=== PATIENT | female | born 1975 | race Asian ===

== ENCOUNTER 2018-03-13 14:31 | Emergency (ER) | payer OTHER ==
[2018-03-13 14:40] VITALS: TEMP 99.2; BMI 34.7
--- NOTE | 2018-03-13 14:48 | PDOC ---
Rapid Medical Evaluation Chief Complaint: Headache Time Seen by Provider: 03/13/18 14:39 Medical Evaluation: Allergies Allergy/AdvReac Type Severity Reaction Status Date / Time No Known Allergies Allergy Verified 03/26/15 09:10 Vital Signs Temp Pulse Resp BP Pulse Ox 99.2 F 96 H 18 139/94 98 03/13/18 14:35 03/13/18 14:35 03/13/18 14:35 03/13/18 14:35 03/13/18 14:35 03/13/18 14:40 42 year old female with headache with pain left eye/ left sided weakness x4 days ago, and shortness of breath. patient has a history of TIA 3 year ago / DM , and hypothyroidism PE: patient alert ox3. A: WEAKNESS p: LABS HEAD ct PATIENT TO THE er OF FURTHER MANAGEMENT OF CARE. Discharge Disposition - Diagnosis Weakness - Referrals - Patient Instructions - Post Discharge Activity
--- NOTE | 2018-03-13 15:18 | PDOC ---
Attending Attestation - HPI HPI: 03/13/18 16:00 42 y/o female with a past medical history of TIA with left sided residual weakness and obesity who presents to the emergency department for evaluation of shortness of breath and headache behind left eye for 3 days. <Janes Wilson - Last Filed: 03/13/18 16:00> - Resident Resident Name: Evangelist Estevez - ED Attending Attestation I have performed the following: I have examined & evaluated the patient, The case was reviewed & discussed with the resident, I agree w/resident's findings & plan, Exceptions are as noted - Physicial Exam PE: GENERAL: Awake, alert, and fully oriented, in no acute distress HEAD: No signs of trauma EYES: PERRLA, EOMI, sclera anicteric, conjunctiva clear ENT: Auricles normal inspection, hearing grossly normal, nares patent, oropharynx clear without exudates. Moist mucosa NECK: Normal ROM, supple, no lymphadenopathy, JVD, or masses LUNGS: Breath sounds equal, clear to auscultation bilaterally. No wheezes, and no crackles HEART: Regular rate and rhythm, normal S1 and S2, no murmurs, rubs or gallops ABDOMEN: Soft, nontender, normoactive bowel sounds. No guarding, no rebound. No masses EXTREMITIES: Normal range of motion, no edema. No clubbing or cyanosis. No cords, erythema, or tenderness NEUROLOGICAL: Cranial nerves II through XII grossly intact. Normal speech, normal gait. Motor and sensation intact. Coordination intact. SKIN: Warm, Dry, normal turgor, no rashes or lesions noted. - Medical Decision Making CTH wnl, no focal deficits on exam. CTA negative for PE. Labs wnl. Outpatient f/ u. <Angela Costa - Last Filed: 03/15/18 18:47> NIH Stroke Scale - Last Known Well Date/Time & Onset Date Last Known Well: 03/12/18 - Initial Evaluation Level of consciousness: Alert Ask patient the month and their age: Answers both correctly Ask patient to open & close eyes; make fist and let go: Obeys both correctly Best gaze (horizontal eye movement): Normal Visual field testing: No visual field loss Facial paresis (Show teeth/raise eyebrows/close eyes tight): Normal symmetrical movement Motor Function: Left Arm: Normal Motor Function: Right Arm: Normal (extends arm 90 (or 45) degrees for 10 seconds without drift Motor Function: Left Leg: Normal (extends leg 30 degrees for 5 seconds without drift) Motor Function: Right Leg: Normal (extends leg 30 degrees for 5 seconds without drift) Limb Ataxia: No ataxia Sensory(Use pinprick test arms,legs,trunk,face/side to side): Normal Best language (Describe picture, name items, read sentences): No Aphasia Dysarthria (read several words): Normal articulation Extinction and Inattention: No abnormality - Total Score NIH Stroke Scale Score: 0 <Angela Costa - Last Filed: 03/15/18 18:47> Attestations - Attestations Documentation prepared by Janes Wilson, acting as medical delivery driver for Angela Costa MD. <Janes Wilson - Last Filed: 03/13/18 16:00>
--- NOTE | 2018-03-13 15:52 | PDOC ---
History of Present Illness - General Chief Complaint: Headache Stated Complaint: HEADACHE, WEAKNESS Time Seen by Provider: 03/13/18 14:39 History Source: Patient - History of Present Illness Initial Comments: 03/13/18 15:51 42f with pmh of TIA in 2015 with residual mild left sided weakness) , Dm2, HTN, hypothyroidism and hyperlipidemia presenting with shortness of breath and headache for the past 3 days. She started feeling short of breath 3 days ago [place] Also complains of 2 episodes of loss of balance, fell twice over the past 2 days. Headache developed that day. located bitemporally but mainly behind left eye on the first day. Main complaint now is shortness of breath. 03/13/18 16:15 NIH Stroke Scale - Last Known Well Date/Time & Onset Date Last Known Well: 03/10/18 - Initial Evaluation Level of consciousness: Alert Ask patient the month and their age: Answers both correctly Ask patient to open & close eyes; make fist and let go: Obeys both correctly Best gaze (horizontal eye movement): Normal Visual field testing: No visual field loss Facial paresis (Show teeth/raise eyebrows/close eyes tight): Normal symmetrical movement Motor Function: Left Arm: Normal Motor Function: Right Arm: Normal (extends arm 90 (or 45) degrees for 10 seconds without drift Motor Function: Left Leg: Normal (extends leg 30 degrees for 5 seconds without drift) Motor Function: Right Leg: Normal (extends leg 30 degrees for 5 seconds without drift) Limb Ataxia: No ataxia Sensory(Use pinprick test arms,legs,trunk,face/side to side): Normal Best language (Describe picture, name items, read sentences): No Aphasia Dysarthria (read several words): Normal articulation Extinction and Inattention: No abnormality - Total Score NIH Stroke Scale Score: 0 Past History - Past Medical History Allergies/Adverse Reactions: Allergies Allergy/AdvReac Type Severity Reaction Status Date / Time No Known Allergies Allergy Verified 03/13/18 14:40 Home Medications: Ambulatory Orders Amlodipine Bes/Olmesartan Med [[place] 5-20 mg Tablet] 1 each PO DAILY 10/07/13 Levothyroxine [Synthroid -] 125 mcg PO DAILY 10/07/13 Sitagliptin Phos/Metformin HCl [Janumet 50-500 mg Tablet] 1 each PO BID Dapagliflozin Propanediol [Farxiga] 5 mg PO DAILY 03/26/15 Aspirin Coated [Ecotrin -] 81 mg PO DAILY #30 tablet.ec 03/27/15 Atorvastatin Ca [Lipitor] 40 mg PO HS tablet 03/27/15 COPD: No Diabetes: Yes HTN: Yes Hypercholesterolemia: Yes Seizures: Yes - Suicide/Smoking/Psychosocial Hx Smoking History: Former smoker Have you smoked in the past 12 months: Yes Number of Cigarettes Smoked Daily: 4 If you are a former smoker, when did you quit?: 02/06 Information on smoking cessation initiated: No 'Breaking Loose' booklet given: 08/05/14 Hx Alcohol Use: No Drug/Substance Use Hx: No Substance Use Type: None Hx Substance Use Treatment: No Review of Systems - Review of Systems Able to Perform ROS?: Yes Is the patient limited [place]ican proficient: No Constitutional: No: Symptoms Reported HEENTM: No: Symptoms Reported Respiratory: Yes: See HPI, SOB with Exertion. No: Cough Cardiac (ROS): No: Symptoms Reported ABD/GI: No: Symptoms Reported : No: Symptoms Reported Musculoskeletal: No: Symptoms Reported Integumentary: No: Symptoms Reported Neurological: Yes: See HPI All Other Systems: Reviewed and Negative *Physical Exam - Vital Signs Last Vital Signs Temp Pulse Resp BP Pulse Ox 99.2 F 96 H 18 139/94 98 03/13/18 14:35 03/13/18 14:35 03/13/18 14:35 03/13/18 14:35 03/13/18 14:35 - Physical Exam General Appearance: Yes: Nourished, Appropriately Dressed, Obese. No: Apparent Distress HEENT: positive: EOMI, [place], Normal ENT Inspection Respiratory/Chest: positive: Lungs Clear, Normal Breath Sounds. negative: Chest Tender, Respiratory Distress Cardiovascular: positive: Regular Rhythm, Regular Rate, S1, S2 Gastrointestinal/Abdominal: positive: Normal Bowel Sounds, Soft, Distended. negative: Tender Musculoskeletal: positive: Normal Inspection. negative: CVA Tenderness Extremity: positive: Normal Capillary Refill, Normal Inspection, Normal Range of Motion Integumentary: positive: Normal Color, Dry, Warm Neurologic: positive: Fully Oriented, Alert, Normal Mood/Affect, Normal Response , Motor Strength 5/5 ED Treatment Course - LABORATORY CBC & Chemistry Diagram: 03/13/18 15:45 03/13/18 15:45 Medical Decision Making - Medical Decision Making 03/13/18 16:14 PE vs CVA vs pneumonia vs URI Will evaluate for CVA/intracranial process with head CT DUe to history of TIA, we have to be concerned about repeat event. if D-dimer come back positive will consider chest CTA for PE 03/13/18 16:17 03/13/18 17:[address] : no acute processes. CTA pending 03/13/18 18:02 CTA negative for PE. Nodules noticed on left basilar lung. Will tell patient. Patient doesnt have a neurologist at this time. Will give referral and D/c. *DC/Admit/Observation/Transfer Diagnosis at time of Disposition: Headache, Shortness of breath - Discharge Dispostion Disposition: HOME Condition at time of disposition: Improved Decision to Admit order: No - Referrals Referrals: Yelena Garber MD [Primary Care Provider] - - Patient Instructions Printed Discharge Instructions: DI for Shortness of Breath Additional Instructions: Follow up with Dr. Garber on Tuesday. Follow up with Dr. Bee, Neurologist, call upon discharge to make appointment. Come back to the Emergency Department for any new, worsening or concerning symptom. - Post Discharge Activity Forms/Work/School Notes: Back to Work
[2018-03-13 15:55] LABS: BASO % 0.5 % (0-2.0); EOS % 3.3 % (0-4.5); HEMATOCRIT 41.8 % (32.4-45.2); HEMOGLOBIN 13.8 GM/dL (10.7-15.3); LYMPH % 24.1 % (8-40); MCH 26.3 pg (25.7-33.7); MCHC 33.1 g/dl (32.0-36.0); MEAN CELL VOLUME 79.4 fl (80-96); MEAN PLT VOLUME 7.7 fl (7.5-11.1); MONO % 7.2 % (3.8-10.2); NEUT % 64.9 % (42.8-82.8); PLATELET COUNT 422 K/MM3 (134-434); RBC 5.26 M/mm3 (3.60-5.2); RDW 15.6 % (11.6-15.6); WHITE BLOOD COUNT 8.7 K/mm3 (4.0-10.0)
[2018-03-13 16:02] LABS: INR 0.96 (0.83-1.09); PROTHROMBIN TIME (PATIENT) 11.3 SEC (9.7-13.0)
[2018-03-13 16:15] LABS: ALBUMIN 4.4 g/dl (3.4-5.0); ALK PHOS 113 U/L (45-117); ANION GAP 11 MMOL/L (8-16); BILIRUBIN,TOTAL 0.2 mg/dL (0.2-1); BLOOD UREA NITROGEN 14 mg/dL (7-18); CALCIUM 9.5 mg/dL (8.5-10.1); CHLORIDE 104 mmol/L (98-107); CHOLESTEROL 199 mg/dL (50-200); CO2 23 mmol/L (21-32); GLUCOSE,RANDOM 162 mg/dL (74-106); HDL CHOLESTEROL 46 mg/dL (40-60); POTASSIUM 4.1 mmol/L (3.5-5.1); SGOT/AST 16 U/L (15-37); SGPT/ALT 31 U/L (13-61); SODIUM 138 mmol/L (136-145); TOT PROT 8.5 g/dl (6.4-8.2); TRIGLYCERIDES 369 mg/dL (0-150)
[2018-03-13 18:44] VITALS: BP 129/82; PULSE 81
== END 2018-03-13 18:44 | disposition home or self-care (01) ==
LOC: JER 14:31
DX: R51 Headache (principal); R06.02 Shortness of breath; I10 Essential (primary) hypertension; E11.9 Type 2 diabetes mellitus without complications; Z79.84 Long term (current) use of oral hypoglycemic drugs; E03.9 Hypothyroidism, unspecified; E78.00 Pure hypercholesterolemia, unspecified; Z86.73 Personal history of transient ischemic attack (TIA), and cerebral infarction without residual deficits; Z86.69 Personal history of other diseases of the nervous system and sense organs; Z87.891 Personal history of nicotine dependence
CPT/HCPCS: 36415; 70450-TC; 71275-TC; 80053; 82465; 82550; 83718; 83721; 84478; 84484; 85025; 85379; 85610; 86850; 86900; 86901; 99283-25

== ENCOUNTER 2018-06-23 10:15 | Emergency (ER) | payer OTHER ==
[2018-06-23 10:21] VITALS: BP 146/85; PULSE 82; TEMP 98.2; BMI 33.5
--- NOTE | 2018-06-23 10:23 | PDOC ---
History of Present Illness - General Chief Complaint: Pain Stated Complaint: LEFT FLANK PAIN Time Seen by Provider: 06/23/18 10:22 - History of Present Illness Initial Comments: 06/23/18 11:24 Chief complaint: Left flank pain History of present illness: Patient complains of intermittent severe colicky left flank pain for several days. This is accompanied by nausea and retching. She is known to have stones in her left kidney. Review of systems: No fever/chills, headache, URI symptoms, sore throat, cough, chest pain, shortness of breath, abdominal pain, diarrhea, vaginal bleeding or discharge, dysuria, frequency, urgency, hesitancy, or hematuria. She states that she is urinating normally. Past medical history: Renal calcification as noted. [id number]-ioduxwuyo diabetes. High blood pressure. Elevated cholesterol. Hypothyroidism. Morbid obesity. 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 Fully active and without disability Family history: Reviewed and noncontributory including early coronary artery disease, metabolic diseases including diabetes, GI disease, kidney disease, and cancer Physical exam: Alert and oriented, moderate distress secondary to flank pain. Otherwise cooperative Afebrile, vital signs normal No pallor or icterus. PERRLA, ENT clear Neck supple without bruit mass or nodes Chest clear CV regular without murmur rub or gallop Abdomen nondistended. Bowel sounds normal. Soft without mass tenderness organomegaly. No appreciable CVAT Extremities no CCE Skin clear, no rash, adequate turgor and wet mucous membranes Neurological intact Impression: Renal calcifications, probably acute renal colic. No abdominal tenderness to suggest other intra-abdominal process. No pelvic tenderness. Plan: Intravenous fluids, analgesics, antiemetics, and observation. Consider further imaging. 06/23/18 11:33 Past History - Past Medical History Allergies/Adverse Reactions: Allergies Allergy/AdvReac Type Severity Reaction Status Date / Time No Known Allergies Allergy Verified 06/23/18 10:18 Home Medications: Ambulatory Orders Levothyroxine [Synthroid -] 125 mcg PO DAILY 10/07/13 Sitagliptin Phos/Metformin HCl [Janumet 50-500 mg Tablet] 1 each PO BID Aspirin Coated [Ecotrin -] 81 mg PO DAILY #30 tablet.ec 03/27/15 Amlodipine Besylate 5 mg PO DAILY 03/13/18 Rosuvastatin Calcium [Crestor] 10 mg PO DAILY 03/13/18 Diclofenac Sodium 50 mg PO TID PRN #15 tablet. 06/23/18 Oxycodone HCl/Acetaminophen [Percocet 10-325 mg Tablet] 1 each PO QID PRN #10 tablet MDD 4 06/23/18 COPD: No Diabetes: Yes HTN: Yes Hypercholesterolemia: Yes Seizures: Yes - Suicide/Smoking/Psychosocial Hx Smoking History: Unknown if ever smoked Have you smoked in the past 12 months: No Number of Cigarettes Smoked Daily: 4 If you are a former smoker, when did you quit?: 02/06 Information on smoking cessation initiated: No 'Breaking Loose' booklet given: 08/05/14 Hx Alcohol Use: No Drug/Substance Use Hx: No Substance Use Type: None Hx Substance Use Treatment: No *Physical Exam - Vital Signs Last Vital Signs Temp Pulse Resp BP Pulse Ox 98.2 F 82 18 146/85 100 06/23/18 10:15 06/23/18 10:15 06/23/18 10:15 06/23/18 10:15 06/23/18 10:15 Moderate Sedation - Procedure Monitoring Vital Signs: Procedure Monitoring Vital Signs Temperature 98.2 F 06/23/18 10:15 Pulse Rate 82 06/23/18 10:15 Respiratory Rate 18 06/23/18 10:15 Blood Pressure 146/85 06/23/18 10:15 O2 Sat by Pulse Oximetry (%) 100 06/23/18 10:15 Medical Decision Making - Medical Decision Making 06/23/18 12:21 Urinalysis reveals 2+ blood no nitrites or leukocyte esterase. Lab work from [place] that was done yesterday was reviewed. CBC and chemistries were normal except for a glucose of 168 Pain and nausea are resolved after the administration of Toradol and Zofran. 06/23/18 14:51 CT urogram shows a stone in the lower pole of the kidney but no hydronephrosis, no hydroureter, and no ureteral stone according to the radiologist. However, there is a calcification distal to the kidney but probably is a vessel. The possibility exists that this is mechanical back pain and that the stone in the kidney is not the source of the discomfort. Since there is no sign of obstruction, pain medication prescribed and follow-up with urologist recommended. To return to the ER if there is fever, increased pain, or other complication. *DC/Admit/Observation/Transfer Diagnosis at time of Disposition: Kidney stone - Discharge Dispostion Disposition: HOME Condition at time of disposition: Improved Decision to Admit order: No - Prescriptions Prescriptions: Diclofenac Sodium 50 mg PO TID PRN #15 tablet. PRN Reason: Pain Oxycodone HCl/Acetaminophen [Percocet 10-325 mg Tablet] 1 each PO QID PRN #10 tablet MDD 4 PRN Reason: Severe Pain - Referrals Referrals: Miguel Mccoy MD [Staff Physician] - 3 days - Patient Instructions Printed Discharge Instructions: DI for Kidney Stones, DI for Back Strain or Sprain - Post Discharge Activity Forms/Work/School Notes: Back to Work
[2018-06-23 10:38] LABS: HCG,QUALITATIVE URINE Negative
[2018-06-23 10:45] LABS: URINE APPEARANCE Clear; URINE BILIRUBIN Negative (NEGATIVE); URINE COLOR Yellow; URINE GLUCOSE (UA) Negative (NEGATIVE); URINE KETONE Trace (NEGATIVE); URINE LEUK ESTERASE Negative (NEGATIVE); URINE NITRITE Negative (NEGATIVE); URINE PROTEIN 2+ (NEGATIVE); URINE UROBILINOGEN 0.2 (0.2-1.0)
[2018-06-23] MEDS ORDERED: SODIUM CHLORIDE 1,000 ML IV STA ×2 (10:47→13:39)
[2018-06-23] MEDS ORDERED: KETOROLAC TROMETHAMINE 30 MG/1 ML VIAL IVPUSH ONE (10:48)
[2018-06-23] MEDS ORDERED: ONDANSETRON 4 MG/2 ML VIAL IVPB ONE (10:48)
[2018-06-23] MEDS ORDERED: KETOROLAC TROMETHAMINE 30 MG/1 ML VIAL ONE (10:53)
[2018-06-23] MEDS ORDERED: ONDANSETRON 4 MG/2 ML VIAL ONE (10:53)
[2018-06-23] MEDS ORDERED: TAMSULOSIN HCL 0.4 MG CAP PO ONE (11:07)
[2018-06-23] MEDS ORDERED: TAMSULOSIN HCL 0.4 MG CAP ONE (11:15)
[2018-06-23 12:27] LABS: EPI CELLS 1+ /HPF
[2018-06-23] MEDS ORDERED: ACETAMINOPHEN 1000 MG/100 ML VIAL (NON FORMULARY) IVPB ONE (13:40)
[2018-06-23] MEDS ORDERED: ACETAMINOPHEN INJECTION 100 ML IVPB ONE (13:45)
== END 2018-06-23 15:21 | disposition home or self-care (01) ==
LOC: FER 10:15
PROC: 3E033NZ Introduction of Analgesics, Hypnotics, Sedatives into Peripheral Vein, Percutaneous Approach (ICD-10-PCS; principal; 2018-06-23)
PROC: 3E0333Z Introduction of Anti-inflammatory into Peripheral Vein, Percutaneous Approach (ICD-10-PCS; 2018-06-23)
PROC: 3E033GC Introduction of Other Therapeutic Substance into Peripheral Vein, Percutaneous Approach (ICD-10-PCS; 2018-06-23)
PROC: 3E0337Z Introduction of Electrolytic and Water Balance Substance into Peripheral Vein, Percutaneous Approach (ICD-10-PCS; 2018-06-23)
DX: N20.0 Calculus of kidney (principal); I10 Essential (primary) hypertension; E11.9 Type 2 diabetes mellitus without complications; E78.00 Pure hypercholesterolemia, unspecified
CPT/HCPCS: 74176-TC; 76775-TC; 81003; 81015; 84703; 99284-25; J0131; J7030

== ENCOUNTER 2018-07-03 11:00 | Day surgery (SDC) | payer OTHER | END 2018-07-03 14:25 | disposition home or self-care (01) | LOC: JASU-SURG 11:00 ==

== ENCOUNTER 2019-01-11 20:16 | Emergency (ER) | payer OTHER ==
[2019-01-11 20:32] VITALS: BMI 29.2
--- NOTE | 2019-01-11 20:34 | PDOC ---
Rapid Medical Evaluation Time Seen by Provider: 01/11/19 20:29 Medical Evaluation: Allergies Allergy/AdvReac Type Severity Reaction Status Date / Time No Known Allergies Allergy Verified 07/03/18 11:37 01/11/19 20:30 Pt with PMH of TIA presents to the ER with L scalp pain since Tuesday. She also reports having associated neck pain. She states that she feels like someone is pulling her hair Exam:TTP with moving her hair on the L side. No rash. No gross neuro deficits Orders: labs Pt to proceed to the ER for further evaluation Discharge Disposition - Diagnosis Scalp pain - Referrals - Patient Instructions - Post Discharge Activity
[2019-01-11 21:15] VITALS: TEMP 98.4
[2019-01-11 21:29] LABS: BASO % 0.4 % (0-2.0); HEMATOCRIT 38.6 % (32.4-45.2); HEMOGLOBIN 12.5 GM/dL (10.7-15.3); LYMPH % 26.8 % (8-40); MCH 26.6 pg (25.7-33.7); MCHC 32.5 g/dl (32.0-36.0); MEAN PLT VOLUME 7.6 fl (7.5-11.1); MONO % 10.9 % (3.8-10.2); NEUT % 54.9 % (42.8-82.8); PLATELET COUNT 372 K/MM3 (134-434); RDW 15.4 % (11.6-15.6); WHITE BLOOD COUNT 6.9 K/mm3 (4.0-10.0)
[2019-01-11 21:42] LABS: EPI CELLS 1.6 /HPF (0-5/HPF); HYALINE CASTS 2 /lpf (0-8); PH,URINE 6.5 (5.0-8.0); URINE APPEARANCE CLEAR; URINE BACTERIA 1.5 /hpf (NEGATIVE); URINE BILIRUBIN NEGATIVE (NEGATIVE); URINE COLOR YELLOW; URINE GLUCOSE (UA) NEGATIVE (NEGATIVE); URINE KETONE NEGATIVE (NEGATIVE); URINE LEUK ESTERASE NEGATIVE (NEGATIVE); URINE NITRITE NEGATIVE (NEGATIVE); URINE PROTEIN 1+ (NEGATIVE); URINE RBC 1 /hpf (0-4); URINE UROBILINOGEN 0.2 mg/dL (0.2-1.0); URINE WBC 2 /hpf (0-5)
[2019-01-11 21:49] LABS: INR 0.91 (0.83-1.09); PROTHROMBIN TIME (PATIENT) 10.7 SEC (9.7-13.0)
[2019-01-11 21:51] LABS: ALBUMIN 4.5 g/dl (3.4-5.0); BILIRUBIN,TOTAL 0.3 mg/dL (0.2-1); BLOOD UREA NITROGEN 14.5 mg/dL (7-18); CALCIUM 9.6 mg/dL (8.5-10.1); POTASSIUM 3.6 mmol/L (3.5-5.1); TOT PROT 8.2 g/dl (6.4-8.2)
[2019-01-11] MEDS ORDERED: ACETAMINOPHEN 1000 MG/100 ML VIAL (NON FORMULARY) IVPB ONE (21:52)
[2019-01-11] MEDS ORDERED: METOCLOPRAMIDE HCL INJECTION 10 MG/2 ML VIAL IVPUSH ONE (21:52)
[2019-01-11] MEDS ORDERED: SODIUM CHLORIDE 0.9% 1000 ML INFUS.BAG IV ONE (21:52)
[2019-01-11] MEDS ORDERED: ACETAMINOPHEN INJECTION 100 ML IVPB ONE (22:04)
[2019-01-11] MEDS ORDERED: METOCLOPRAMIDE HCL INJECTION 10 MG/2 ML VIAL ONE (22:04)
--- NOTE | 2019-01-11 22:42 | PDOC ---
History of Present Illness - General Chief Complaint: Headache Stated Complaint: TIA Time Seen by Provider: 01/11/19 20:29 History Source: Patient Exam Limitations: No Limitations - History of Present Illness Initial Comments: 01/11/19 22:03 HPI: 43yo F with PMH HTN, TIA in 2014, hypothyroidism, DM2, anemia, menopause ( unconfirmed, reports LMP Apr 2018), presenting with muffled L ear and L scalp sensation for 4 days. Reports chronic nausea, hx of palpitations, prior thrombocytopenia, some recent subjective fevers / chills. Reports bilateral leg weakness at present. Weight loss of 30lb previsouly unexplained, found to be related to thyroxine dose. Symptoms gradually started on tuesday, subsequently worsened over the day today. Unable to "pop" her ear. Worried about astrocytoma. Sent in from urgent care for CT. Patient denies any trauma to her ear / drainage / pain. All: KNDa Meds: -Synthroid 100 -Amlodipine 5/20 -Crestor 40 -Pepcid -Janumet 50/500 BID -Vitamin D PMH: as above PSH: denies Past History - Travel Traveled outside of the country in the last 30 days: No Close contact w/someone who was outside of country & ill: No - Past Medical History Allergies/Adverse Reactions: Allergies Allergy/AdvReac Type Severity Reaction Status Date / Time No Known Allergies Allergy Verified 01/11/19 20:32 Home Medications: Ambulatory Orders Levothyroxine [Synthroid -] 100 mcg PO DAILY 10/07/13 Amlodipine Besylate 5 mg PO DAILY 01/11/19 Benazepril HCl 20 mg PO DAILY 01/11/19 Cholecalciferol (Vitamin D3) [Vitamin D3 -] 50,000 unit PO DAILY 01/11/19 Famotidine [Pepcid] 20 mg PO DAILY 01/11/19 Rosuvastatin Calcium [Crestor] 40 mg PO DAILY 01/11/19 Sitagliptin Phos/Metformin HCl [Janumet 50-500 mg Tablet] 1 each PO BID Anemia: Yes Asthma: No Cancer: No Cardiac Disorders: No CVA: (TIA 2014) COPD: No CHF: No Dementia: No Diabetes: Yes GI Disorders: No Disorders: No HTN: Yes Hypercholesterolemia: Yes Kidney Stones: Yes Liver Disease: No Seizures: Yes (1990'S) Thyroid Disease: No - Suicide/Smoking/Psychosocial Hx Smoking History: Former smoker Have you smoked in the past 12 months: Yes Number of Cigarettes Smoked Daily: 4 If you are a former smoker, when did you quit?: 04/11 Information on smoking cessation initiated: No 'Breaking Loose' booklet given: 08/05/14 Hx Alcohol Use: No Drug/Substance Use Hx: No Substance Use Type: None Hx Substance Use Treatment: No Review of Systems - Review of Systems Able to Perform ROS?: Yes Is the patient limited [place] proficient: Yes Constitutional: Yes: Chills, Fever (subjective), Weakness (bilateral legs), Unexplained wgt Loss (now explained, thyroid hormone OD). No: Diaphoresis HEENTM: No: Recent change in vision, Nose Congestion, Throat Pain, Throat Swelling Respiratory: No: Cough, Orthopnea, Shortness of Breath, Wheezing Cardiac (ROS): No: Chest Pain, Edema, Irregular Heart Rate, Palpitations, Syncope, Chest Tightness ABD/GI: No: Blood Streaked Bowels, Constipated, Diarrhea, Nausea, Rectal Bleeding, Vomiting, Tarry Stools : No: Burning, Dysuria, Discharge, Frequency Musculoskeletal: Yes: Muscle Weakness. No: Back Pain, Joint Pain, Muscle Pain Integumentary: No: Bruising, Dryness, Erythema, Pruritus, Rash Neurological: No: Headache, Numbness, Tingling Psychiatric: No: Anxiety, Depression, Stressors, Mood Swings, Change in Appetite Endocrine: No: Excessive Sweating, Intolerance to Cold, Intolerance to Heat, Change in Weight (none recently) Hematologic/Lymphatic: No: Anemia, Blood Clots, Easy Bleeding, Easy Bruising All Other Systems: Reviewed and Negative *Physical Exam - Vital Signs Last Vital Signs Temp Pulse Resp BP Pulse Ox 98.4 F 95 H 18 149/106 H 96 01/11/19 21:12 01/11/19 21:12 01/11/19 20:30 01/11/19 21:12 01/11/19 21:12 - Physical Exam Comments: 01/11/19 22:44 Vitals reviewed, notable for HTN, otherwise AFVSS Gen: WDWN woman, appears stated age, NAD, sitting in bed, nervous HEENT: PERRLA, MMM, trachea midline, throat noninected, NCAT, no scalp erythema/ rash/lesions, scalp nontender, TMs intact without infectious signs bilaterally, no impacted cerumen, sinuses nontender, normal morphologies, EOMI CV: RRR, nl s1/s2, no murmurs appreciated Pulm: CTABL, normal WOB, no wheezes / rales / rhonchi Abd: soft, nontender, nondistended Ext: WWP, no clubbing / cyanosis / edema Pulses: 2+ radial and PT Neuro: CN2-12 intact, 5+ strength throughout, normal sensation throughout, MAEE , alert and oriented ED Treatment Course - LABORATORY CBC & Chemistry Diagram: 01/11/19 21:10 01/11/19 21:10 - ADDITIONAL ORDERS Additional order review: Laboratory Results 01/11/19 01/11/19 01/11/19 21:10 21:10 21:10 PT with INR 10.70 INR 0.91 Sodium 140 Potassium 3.6 Chloride 105 Carbon Dioxide 28 Anion Gap 8 BUN 14.5 Creatinine 1.0 Est GFR (CKD-EPI)AfAm 78.79 Est GFR (CKD-EPI)NonAf 67.98 Random Glucose 152 H Calcium 9.6 Total Bilirubin 0.3 AST 11 L ALT 16 Alkaline Phosphatase 95 Total Protein 8.2 Albumin 4.5 Urine Color Yellow Urine Appearance Clear Urine pH 6.5 Ur Specific [place] 1.012 Urine Protein 1+ H Urine Glucose (UA) Negative Urine Ketones Negative Urine Blood Trace Urine Nitrite Negative Urine Bilirubin Negative Urine Urobilinogen 0.2 Ur Leukocyte Esterase Negative Urine WBC (Auto) 2 Urine RBC (Auto) 1 Urine Casts (Auto) 2 U Epithel Cells (Auto) 1.6 Urine Bacteria (Auto) 1.5 01/11/19 21:10 RBC 4.70 MCV 82.0 MCHC 32.5 RDW 15.4 MPV 7.6 Neutrophils % 54.9 Lymphocytes % 26.8 Monocytes % 10.9 H Eosinophils % 7.0 H D Basophils % 0.4 - RADIOLOGY Radiology Studies Ordered: Category Date Time Status HEAD CT WITHOUT CONTRAST [CT] Stat CT Scan 01/11/19 22:00 Ordered Medical Decision Making - Medical Decision Making 01/11/19 22:30 43yo F with PMH HTN, TIA in 2014, hypothyroidism, DM2, anemia, menopause ( unconfirmed, reports LMP Apr 2018), presenting with muffled L ear and L scalp sensation for 4 days. Sent from urgent care for CT given FHx of astrocytoma, personal history of TIA, and atypical symptom constellation. Exam notable for normal lining machine tender aside from subjective sensory changes (L<R), normal neuro exam otherwise. History notable for abrupt onset of subacute symptoms. Does not appear infectious (AF, noninfectious exam). Could be an atypical migraine vs less likely TIA (must consider given prior CVA in 2015, no anticoagulation, Hx of palpitations). Unlikely ENT pathology given exam although fullness / muffled Hx would be c/w Eustachian tube blockage. Will Tx for atypical migraine while obtaining labs / imaging to assess sx resolution. -CBC, CMP, PT/INR, UA/UCx, Serum Preg -Reglan, Tylenol, IVF -NCHCT 01/11/19 23:12 -No leukocytosis or anemia, plts within normal range -Pt/INR normal -Glucose mildly elevated to 152 -LFTs wnl -UA without signs of UTI - test negative -NCHCT pending 01/12/19 00:39 -Head CT without acute findings -Patient to f/u with ENT -Return precautions discussed, patient verbalized understanding Dispo: Home *DC/Admit/Observation/Transfer Diagnosis at time of Disposition: Scalp pain - Discharge Dispostion Disposition: HOME Condition at time of disposition: Improved Decision to Admit order: No - Referrals Referrals: Yelena Garber MD [Primary Care Provider] - Murphy Ortega MD [Staff Physician] - - Patient Instructions Printed Discharge Instructions: DI for Migraine Additional Instructions: You were seen and evaluated in the ED for headache and ear fullness. Your work up ruled out emergent causes of your symptoms. Please follow up with your primary care doctor in the next 1-2 days for further evaluation. Also please arrange an appointment with the provided ENT doctor for further evaluation of your ear complaints. Do not hesitate to return to the emergency department if you experience any new or concerning symptoms. - Post Discharge Activity
--- NOTE | 2019-01-11 23:29 | PDOC ---
Documentation entered by Penny David SCRIBE, acting as scribe for Erinn Vidal DO. Erinn Vidal DO: This documentation has been prepared by the Frankie murray Brenda, SCRIBE, under my direction and personally reviewed by me in its entirety. I confirm that the documentation accurately reflects all work, treatment, procedures, and medical decision making performed by me. Attending Attestation - Resident Resident Name: PuneetJohnson - ED Attending Attestation I have performed the following: I have examined & evaluated the patient, The case was reviewed & discussed with the resident, I agree w/resident's findings & plan, Exceptions are as noted - HPI HPI: 01/11/19 22:33 The patient is a 43 year old female, with a significant PMH of TIA in 2014 (Left -sided weakness) , NIDDM, HTN, hypothyroidism and hyperlipidemia who presents to the emergency department with left and mid scalp pain since Tuesday, stating that the ain is due to her hair. Patient also reports muffled hearing in her left ear. She also reports blurry vision, but notes recently wearing glasses for it. The patient denies any cold symptoms. Denies chest pain, shortness of breath, and dizziness. Denies fever, chills, nausea, vomiting, diarrhea and constipation. Denies dysuria, frequency, urgency and hematuria. Allergies: NKA Past surgical history: Left ESWL Social history: Former smoker. PCP: Dr. Garber - Physicial Exam PE: 01/11/19 22:33 GENERAL: Awake, alert, and fully oriented, in no acute distress HEAD: No signs of trauma EYES: PERRLA, EOMI, sclera anicteric, conjunctiva clear ENT: Auricles normal inspection, hearing grossly normal, nares patent, oropharynx clear without exudates. Moist mucosa NECK: Normal ROM, supple, no lymphadenopathy, JVD, or masses LUNGS: Breath sounds equal, clear to auscultation bilaterally. No wheezes, and no crackles HEART: Regular rate and rhythm, normal S1 and S2, no murmurs, rubs or gallops ABDOMEN: Soft, nontender, normoactive bowel sounds. No guarding, no rebound. No masses EXTREMITIES: Normal range of motion, no edema. No clubbing or cyanosis. No cords, erythema, or tenderness NEUROLOGICAL: Cranial nerves II through XII grossly intact. Normal speech, normal gait SKIN: Warm, Dry, normal turgor, no rashes or lesions noted. - Medical Decision Making 01/11/19 23:26 I, Dr. Erinn Vidal, DO, attest that this document has been prepared under my direction and personally reviewed by me in its entirety. I further attest, that it accurately reflects all work, treatment, procedures and medical decision -making performed by me. a/p: 43yo female with L hair pain and ear fullness -pt states ear feels clogged and decreased hearing since tuesday -no rhinorrhea, no mastoid pain, no sinus congestion, no sneezing, no nasal congestion, no f/c -denies juarez -no tinnitus -no vertigo -no parotidis -will send labs, head ct - family with hx of astrocytoma causing acute hearing loss - pt very concerned -will medicate with reglan and tylenol -will monitor and reassess 01/11/19 23:28 neuro intact labs reviewed pt to head ct 01/12/19 00:53 no acute findings on head ct pt stable for dc to home to follow up with ENT for further eval of ear fullness
[2019-01-12 02:01] VITALS: BP 145/97; PULSE 86
== END 2019-01-12 01:30 | disposition home or self-care (01) ==
LOC: JER 20:16
PROC: 3E033NZ Introduction of Analgesics, Hypnotics, Sedatives into Peripheral Vein, Percutaneous Approach (ICD-10-PCS; principal; 2019-01-11)
PROC: 3E0337Z Introduction of Electrolytic and Water Balance Substance into Peripheral Vein, Percutaneous Approach (ICD-10-PCS; 2019-01-11)
PROC: 3E033GC Introduction of Other Therapeutic Substance into Peripheral Vein, Percutaneous Approach (ICD-10-PCS; 2019-01-11)
DX: G43.909 Migraine, unspecified, not intractable, without status migrainosus (principal); L98.9 Disorder of the skin and subcutaneous tissue, unspecified; I10 Essential (primary) hypertension; E11.9 Type 2 diabetes mellitus without complications; E03.9 Hypothyroidism, unspecified; E78.5 Hyperlipidemia, unspecified; Z86.73 Personal history of transient ischemic attack (TIA), and cerebral infarction without residual deficits; Z86.69 Personal history of other diseases of the nervous system and sense organs; Z87.442 Personal history of urinary calculi; Z87.891 Personal history of nicotine dependence
CPT/HCPCS: 36415; 70450-TC; 80053; 81003; 84703; 85025; 85610; 87086; 99283-25; J0131; J7030

== ENCOUNTER 2019-05-11 12:48 | Day surgery (SDC) | payer OTHER ==
[2019-05-10 12:56] VITALS: BMI 30.2
[2019-05-11] MEDS ORDERED: LIDOCAINE HCL 2% (20ML MULTI-DOSE VIAL) ONE (15:09)
[2019-05-11] MEDS ORDERED: LIDOCAINE HCL 2% (50ML VIAL) INF ONE (15:52)
[2019-05-11] MEDS ORDERED: ACETAMINOPHEN 325 MG TABLET (FP) ONE (16:24)
--- NOTE | 2019-05-11 16:49 | OP ---
DATE OF OPERATION: DATE OF DICTATION: 05/11/2019 PREOPERATIVE DIAGNOSIS: Vulvar lesion. POSTOPERATIVE DIAGNOSIS: Vulvar lesion. SURGEON: Perfecto Butler MD ANESTHESIA: Local 2% lidocaine. PROCEDURE: Removal of a lesion very close to clitoris about 1 cm. DESCRIPTION OF PROCEDURE: During the procedure, 2 mL of lidocaine 2% injected and the lesion removed, and 2 sutures with 3-0 Vicryl was done. Estimated blood loss was 2 mL. Patient tolerated the procedure, was sent back to her room. Rebekah [id number]
[2019-05-11 17:23] VITALS: BP 120/60; PULSE 70; TEMP 97.8
--- NOTE | 2019-05-15 14:56 | PATH ---
Surgical Pathology Report Patient Name: BHASKAR RODRIGUEZ [facility]. Rec. #: [id number] /Age/Gender: 1975 (Age: 43) / F Account: [id number] Location: [facility] SURGICAL Taken: 05/11/2019 Received: 05/14/2019 Reported: 05/15/2019 Physicians: Perfecto Butler M.D. Specimen(s) Received VULVA LESION Clinical History Vulvar neoplasm Final Diagnosis VULVAR LESION, EXCISION: GENITAL SKIN WITH CHANGES CONSISTENT WITH RUPTURED AND INFLAMED EPIDERMAL INCLUSION CYST. NO DYSPLASIA IDENTIFIED. Comment: Deeper levels have been examined. Suggest clinical correlation. Electronically Signed Wendy Britton M.D. Gross Description Received in formalin labeled "vulvar lesion," is a 0.9 x 0.4 cm bonds brown, irregular, unoriented skin shave. The base is inked green and the specimen is trisected. The specimen is entirely submitted in one cassette. DL/05/14/2019 saudi/05/14/2019
== END 2019-05-11 17:20 | disposition home or self-care (01) ==
LOC: JASU-SURG 12:48
PROVIDERS: ATTEND Obstetrics & Gynecology
PROC: 0UBM0ZX Excision of Vulva, Open Approach, Diagnostic (ICD-10-PCS; principal; 2019-05-11 15:00)
DX: D49.59 Neoplasm of unspecified behavior of other genitourinary organ (principal)
CPT/HCPCS: 82962; 84703; 88305-TC

== ENCOUNTER 2020-12-09 07:08 | Observation (INO) | payer OTHER ==
[2020-12-09 07:26] VITALS: BMI 29.2
[2020-12-09] MEDS ORDERED: SODIUM CHLORIDE 1,000 ML IV SCH ×2 (07:45→13:30)
[2020-12-09 08:18] LABS: BASO % 1.3 % (0-2.0); EOS % 7.8 % (0-4.5); HEMATOCRIT 40.5 % (32.4-45.2); HEMOGLOBIN 13.9 GM/dL (10.7-15.3); MCH 30.3 pg (25.7-33.7); MCHC 34.3 g/dl (32.0-36.0); MEAN CELL VOLUME 88.3 fl (80-96); MEAN PLT VOLUME 7.6 fl (7.5-11.1); MONO % 7.8 % (3.8-10.2); NEUT % 59.1 % (42.8-82.8); PLATELET COUNT 306 10^3/uL (134-434); RBC 4.59 M/mm3 (3.60-5.2); RDW 13.9 % (11.6-15.6); WHITE BLOOD COUNT 6.6 K/mm3 (4.0-10.0)
[2020-12-09 08:33] LABS: CHLORIDE 110 mmol/L (98-107); SODIUM 142 mmol/L (136-145)
[2020-12-09 08:36] LABS: ALBUMIN 3.9 g/dl (3.4-5.0); ANION GAP 7 MMOL/L (8-16); BLOOD UREA NITROGEN 14.2 mg/dL (7-18); CALCIUM 8.6 mg/dL (8.5-10.1); CO2 25 mmol/L (21-32); GLUCOSE,RANDOM 161 mg/dL (74-106); INR 0.84 (0.83-1.09); PROTHROMBIN TIME (PATIENT) 10.4 SEC (9.7-13.0)
[2020-12-09 08:38] LABS: CHOLESTEROL 183 mg/dL (50-200); TRIGLYCERIDES 311 mg/dL (0-150)
[2020-12-09 08:39] LABS: ACTIVATED PTT 31.3 SECONDS (25.2-36.5); CREATININE 1.1 mg/dL (0.55-1.3); SGOT/AST 16 U/L (15-37); SGPT/ALT 24 U/L (13-61)
[2020-12-09 08:39] LABS: URINE APPEARANCE CLEAR; URINE BILIRUBIN NEGATIVE (NEGATIVE); URINE COLOR YELLOW; URINE GLUCOSE (UA) NEGATIVE (NEGATIVE); URINE KETONE NEGATIVE (NEGATIVE); URINE LEUK ESTERASE NEGATIVE (NEGATIVE); URINE NITRITE NEGATIVE (NEGATIVE); URINE PROTEIN NEGATIVE (NEGATIVE); URINE UROBILINOGEN 0.2 mg/dL (0.2-1.0)
[2020-12-09 08:40] LABS: LDL CHOLESTEROL (ONLY SJRH) 105 mg/dL (5-100)
[2020-12-09 08:41] LABS: BILIRUBIN,TOTAL 0.3 mg/dL (0.2-1); HDL CHOLESTEROL 42 mg/dL (40-60); TOT PROT 7.2 g/dl (6.4-8.2)
[2020-12-09 08:42] LABS: ALK PHOS 84 U/L (45-117)
[2020-12-09] MEDS ORDERED: ASPIRIN 81 MG CHEWABLE TABLETS PO ONE ×2 (08:52→08:54)
[2020-12-09] MEDS ORDERED: CLOPIDOGREL BISULFATE 75 MG TABLET (FP) PO ONE (09:21)
[2020-12-09] MEDS ORDERED: ASPIRIN 81 MG CHEWABLE TABLETS ONE (09:25)
[2020-12-09] MEDS ORDERED: CLOPIDOGREL BISULFATE 75 MG TABLET (FP) ONE (09:26)
[2020-12-09] MEDS ORDERED: ACETAMINOPHEN 325 MG TABLET (FP) PO PRN (17:28)
[2020-12-09] MEDS ORDERED: ACETAMINOPHEN 325 MG TABLET (FP) ONE (17:35)
[2020-12-09] MEDS: TOPIRAMATE 25 MG TABLET PO SCH (21:30)
[2020-12-10 07:49] LABS: BASO % 1.9 % (0-2.0); EOS % 9.2 % (0-4.5); HEMATOCRIT 39.3 % (32.4-45.2); HEMOGLOBIN 13.3 GM/dL (10.7-15.3); LYMPH % 24.4 % (8-40); MCH 29.8 pg (25.7-33.7); MCHC 33.8 g/dl (32.0-36.0); MEAN CELL VOLUME 88.2 fl (80-96); MEAN PLT VOLUME 7.8 fl (7.5-11.1); MONO % 8.6 % (3.8-10.2); NEUT % 55.9 % (42.8-82.8); PLATELET COUNT 319 10^3/uL (134-434); RBC 4.45 M/mm3 (3.60-5.2); RDW 13.7 % (11.6-15.6); WHITE BLOOD COUNT 5.7 K/mm3 (4.0-10.0)
[2020-12-10 08:09] LABS: ALBUMIN 3.6 g/dl (3.4-5.0)
[2020-12-10 08:11] LABS: CALCIUM 8.7 mg/dL (8.5-10.1); MAGNESIUM 2.3 mg/dL (1.8-2.4)
[2020-12-10 08:12] LABS: BLOOD UREA NITROGEN 17.7 mg/dL (7-18); CREATININE 0.8 mg/dL (0.55-1.3)
[2020-12-10 08:13] LABS: TOT PROT 6.8 g/dl (6.4-8.2)
[2020-12-10 08:15] LABS: PHOSPHOROUS 4.6 mg/dL (2.5-4.9)
[2020-12-10 08:17] LABS: BILIRUBIN,TOTAL 0.3 mg/dL (0.2-1)
[2020-12-10] MEDS ORDERED: CLOPIDOGREL BISULFATE 75 MG TABLET (FP) PO SCH (10:00)
[2020-12-10] MEDS ORDERED: ASPIRIN COATED 81 MG TABLET.EC PO SCH (10:00)
[2020-12-10] MEDS: TOPIRAMATE 25 MG TABLET PO SCH (10:19)
[2020-12-10 15:14] VITALS: BP 154/88; PULSE 80; TEMP 98.6
[2020-12-11] MEDS ORDERED: MAGNESIUM OXIDE 400 MG TABLET (FP) PO SCH (10:00)
[2020-12-11] MEDS ORDERED: TOPIRAMATE 25 MG TABLET PO SCH (10:00)
== END 2020-12-10 15:58 | disposition home or self-care (01) ==
LOC: JER 07:08 → JERBED 09:01 → INTOOBSV 09:01 → UNDOADMOB 09:01 → J4W 19:03 → JERBED 19:03 → J4W 12-10 08:54
PROVIDERS: ADMIT Internal Medicine
PROC: 3E0337Z Introduction of Electrolytic and Water Balance Substance into Peripheral Vein, Percutaneous Approach (ICD-10-PCS; principal; 2020-12-10)
DX: G43.109 Migraine with aura, not intractable, without status migrainosus (principal); G45.9 Transient cerebral ischemic attack, unspecified; E03.9 Hypothyroidism, unspecified; E11.9 Type 2 diabetes mellitus without complications; I10 Essential (primary) hypertension; Z86.16 Personal history of COVID-19; M62.81 Muscle weakness (generalized); R07.9 Chest pain, unspecified; Z87.891 Personal history of nicotine dependence; E78.5 Hyperlipidemia, unspecified; M54.12 Radiculopathy, cervical region
CPT/HCPCS: 36415; 70450-TC; 70496-TC; 70498-TC; 70551-TC; 71045-TC-FY; 80053; 80061; 81003; 82550; 82607; 82962; 83036; 83735; 84100; 84155; 84165; 84484; 85025; 85610; 85730; 86850; 86900; 86901; 93005; 93010; 93880-TC; 96360; 96361; 97116-GP; 97161-GP; 99291; C9803; G0378; Q9967; U0003; U0005

== ENCOUNTER 2021-10-01 04:26 | Day surgery (SDC) | payer OTHER ==
[2021-09-25 09:13] VITALS: BMI 30.9
[2021-10-01] MEDS ORDERED: MIDAZOLAM HCL 2 MG/2 ML SINGLE DOSE VIAL ONE ×2 (12:39)
[2021-10-01] MEDS ORDERED: PROPOFOL 20 ML ONE (12:39)
[2021-10-01] MEDS ORDERED: ceFAZolin SODIUM 1 GM VIAL IVPB ONE (12:52)
[2021-10-01] MEDS ORDERED: KETOROLAC TROMETHAMINE 30 MG/1 ML VIAL ONE (12:55)
[2021-10-01] MEDS ORDERED: ceFAZolin SODIUM 1 GM VIAL ONE (12:55)
[2021-10-01] MEDS ORDERED: DEXAMETHASONE SOD PHOSPHATE 4 MG/1 ML VIAL ONE (12:55)
[2021-10-01] MEDS ORDERED: ONDANSETRON 4 MG/2 ML VIAL IVPUSH PRN (13:21)
[2021-10-01] MEDS ORDERED: oxyCODONE HCL 5 MG TABLET PO PRN (13:21)
[2021-10-01] MEDS ORDERED: ACETAMINOPHEN 1000 MG/100 ML BAG IVPB PRN (13:22)
[2021-10-01] MEDS ORDERED: FENTANYL CITRATE/PF 50 MCG/ML VIAL ONE (13:55)
[2021-10-01 16:10] VITALS: BP 115/82; PULSE 64; TEMP 98.6
== END 2021-10-01 16:31 | disposition home or self-care (01) ==
LOC: JASU-SURG 04:26
PROVIDERS: ATTEND Obstetrics & Gynecology
PROC: 0UDB7ZZ Extraction of Endometrium, Via Natural or Artificial Opening (ICD-10-PCS; principal; 2021-10-01 13:00)
PROC: 0UJD8ZZ Inspection of Uterus and Cervix, Via Natural or Artificial Opening Endoscopic (ICD-10-PCS; 2021-10-01 13:00)
DX: N95.0 Postmenopausal bleeding (principal)
CPT/HCPCS: 82962; 88305-TC; 94760; C9803-CS; U0003; U0005

== ENCOUNTER 2021-11-25 02:41 | Emergency (ER) | payer OTHER ==
[2021-11-25] MEDS ORDERED: ALBUTEROL SO4 2.5/IPRATROPIUM 0.5 INH SOL 3 ML VIAL.NEB. NEB ONE ×2 (03:07→03:58)
[2021-11-25] MEDS ORDERED: methylPREDNISolone NA SUCC 125 MG/2 ML VIAL IVPUSH ONE ×2 (03:08→06:09)
[2021-11-25 03:30] VITALS: BMI 30.9
[2021-11-25] MEDS ORDERED: methylPREDNISolone NA SUCC 125 MG/2 ML VIAL ONE (03:58)
[2021-11-25 04:37] LABS: EOS % 8.9 % (0-4.5); HEMATOCRIT 39.5 % (32.4-45.2); HEMOGLOBIN 13.5 GM/dL (10.7-15.3); LYMPH % 24.1 % (8-40); MCH 29.3 pg (25.7-33.7); MCHC 34.1 g/dl (32.0-36.0); MEAN CELL VOLUME 85.9 fl (80-96); MEAN PLT VOLUME 7.2 fl (7.5-11.1); PLATELET COUNT 315 10^3/uL (134-434); RBC 4.59 M/mm3 (3.60-5.2); RDW 13.1 % (11.6-15.6); WHITE BLOOD COUNT 5.7 K/mm3 (4.0-10.0)
[2021-11-25 04:49] LABS: INR 0.92 (0.83-1.09); PROTHROMBIN TIME (PATIENT) 10.6 SEC (9.7-13.0)
[2021-11-25 04:52] LABS: ACTIVATED PTT 33.5 SECONDS (25.2-36.5)
[2021-11-25 05:04] LABS: CALCIUM 8.9 mg/dL (8.5-10.1)
[2021-11-25 05:05] LABS: ALBUMIN 3.8 g/dl (3.4-5.0); BLOOD UREA NITROGEN 16.5 mg/dL (7-18)
[2021-11-25 05:08] LABS: CREATININE 0.9 mg/dL (0.55-1.3)
[2021-11-25 05:10] LABS: BILIRUBIN,TOTAL 0.4 mg/dL (0.2-1); TOT PROT 7.1 g/dl (6.4-8.2)
[2021-11-25] MEDS ORDERED: ALBUTEROL SO4 2.5/IPRATROPIUM 0.5 INH SOL 3 ML VIAL.NEB. NEB SCH (05:15)
[2021-11-25] MEDS ORDERED: BEBTELOVIMAB (EUA) 175 MG/2 ML VIAL IVPUSH ONE (06:09)
[2021-11-25] MEDS: ALBUTEROL SO4 2.5/IPRATROPIUM 0.5 INH SOL 3 ML VIAL.NEB. NEB SCH ×3 (06:20→07:31)
[2021-11-25 08:10] VITALS: BP 120/81; PULSE 72; RESP 19; TEMP 97.5
== END 2021-11-25 08:10 | disposition home or self-care (01) ==
LOC: JER 02:41
PROC: 3E033GC Introduction of Other Therapeutic Substance into Peripheral Vein, Percutaneous Approach (ICD-10-PCS; principal; 2021-11-25)
PROC: 3E0F7GC Introduction of Other Therapeutic Substance into Respiratory Tract, Via Natural or Artificial Opening (ICD-10-PCS; 2021-11-25)
DX: U07.1 COVID-19 (principal)
CPT/HCPCS: 0241U-QW; 36415; 71046-TC-FY; 80053; 84484; 84703; 85025; 85379; 85610; 85730; 93005; 93010; 94640; 96374; 96375; 99285-25; M0222; Q0222

== ENCOUNTER 2022-02-12 02:12 | Observation (INO) | payer OTHER ==
[2022-02-12] MEDS ORDERED: ACETAMINOPHEN INJECTION 100 ML IVPB ONE (02:28)
[2022-02-12] MEDS ORDERED: morphine CARPU-JECT 4 MG/1 ML DISP.SYRIN IVPUSH ONE (02:42)
[2022-02-12] MEDS ORDERED: morphine SULFATE 4 MG/ML VIAL ONE (02:49)
[2022-02-12 02:54] LABS: EOS % 4.8 % (0-4.5); HEMATOCRIT 40.1 % (32.4-45.2); HEMOGLOBIN 13.4 GM/dL (10.7-15.3); LYMPH % 24.9 % (8-40); MCH 29.4 pg (25.7-33.7); MCHC 33.5 g/dl (32.0-36.0); MEAN CELL VOLUME 87.8 fl (80-96); MEAN PLT VOLUME 6.8 fl (7.5-11.1); MONO % 9.8 % (3.8-10.2); NEUT % 59.5 % (42.8-82.8); PLATELET COUNT 450 10^3/uL (134-434); RBC 4.57 M/mm3 (3.60-5.2); RDW 13.8 % (11.6-15.6); WHITE BLOOD COUNT 8.8 K/mm3 (4.0-10.0)
[2022-02-12 03:00] LABS: INR 0.97 (0.83-1.09); PROTHROMBIN TIME (PATIENT) 11.1 SEC (9.7-13.0)
[2022-02-12 03:03] LABS: ACTIVATED PTT 33.4 SECONDS (25.2-36.5)
[2022-02-12 03:14] LABS: CALCIUM 9.4 mg/dL (8.5-10.1)
[2022-02-12 03:16] LABS: ALBUMIN 3.8 g/dl (3.4-5.0); BLOOD UREA NITROGEN 20.2 mg/dL (7-18); MAGNESIUM 2.1 mg/dL (1.8-2.4)
[2022-02-12 03:18] LABS: CREATININE 0.9 mg/dL (0.55-1.3)
[2022-02-12 03:20] LABS: BILIRUBIN,TOTAL 0.5 mg/dL (0.2-1); TOT PROT 7.3 g/dl (6.4-8.2)
[2022-02-12 04:25] LABS: EPI CELLS 6 /uL (0-25.1); HYALINE CASTS 0 /uL (0-3.1); URINE APPEARANCE CLEAR; URINE BACTERIA 2 /uL (0-1359); URINE BILIRUBIN NEGATIVE (NEGATIVE); URINE COLOR YELLOW; URINE GLUCOSE (UA) NEGATIVE (NEGATIVE); URINE KETONE NEGATIVE (NEGATIVE); URINE LEUK ESTERASE NEGATIVE (NEGATIVE); URINE NITRITE NEGATIVE (NEGATIVE); URINE PROTEIN NEGATIVE (NEGATIVE); URINE RBC 181 /uL (0-23.9); URINE UROBILINOGEN 0.2 mg/dL (0.2-1.0); URINE WBC 7 /uL (0-25.8)
[2022-02-12] MEDS ORDERED: KETOROLAC TROMETHAMINE 30 MG/1 ML VIAL ONE (06:05)
[2022-02-12] MEDS ORDERED: ACETAMINOPHEN 325 MG TABLET (FP) PO PRN (11:16)
[2022-02-12] MEDS ORDERED: SENNOSIDES 8.6MG TABLET (FP) PO PRN (11:16)
[2022-02-12 11:47] VITALS: BMI 30.9
[2022-02-12] MEDS ORDERED: BENZOCAINE/MENTH/CETYLPYRD CL 1 EACH LOZENGE MM PRN (12:29)
[2022-02-12] MEDS: amLODIPine BESYLATE 5 MG TABLET (FP) PO SCH (12:32)
[2022-02-12] MEDS: ASPIRIN COATED 81 MG TABLET.EC PO SCH (12:32)
[2022-02-12] MEDS: guaiFENesin/D-M SUGAR-FREE/ACLHOL-FREE 118 ML BOTTLE PO PRN (15:51)
[2022-02-12] MEDS: INSULIN SLIDING SCALE (NOVOLOG) 1 VIAL SQ SCH ×2 (16:40→21:29)
[2022-02-12 16:54] LABS: EPI CELLS 13 /uL (0-25.1); HYALINE CASTS 0 /uL (0-3.1); URINE APPEARANCE CLEAR; URINE BACTERIA 47 /uL (0-1359); URINE BILIRUBIN NEGATIVE (NEGATIVE); URINE COLOR YELLOW; URINE GLUCOSE (UA) NEGATIVE (NEGATIVE); URINE KETONE NEGATIVE (NEGATIVE); URINE LEUK ESTERASE NEGATIVE (NEGATIVE); URINE NITRITE NEGATIVE (NEGATIVE); URINE PROTEIN NEGATIVE (NEGATIVE); URINE RBC 537 /uL (0-23.9); URINE WBC 4 /uL (0-25.8)
[2022-02-12] MEDS ORDERED: LISINOPRIL 20 MG TABLET PO SCH (22:00)
[2022-02-12] MEDS ORDERED: ROSUVASTATIN CA 20 MG TABLET PO SCH (22:00)
[2022-02-13] MEDS: guaiFENesin/D-M SUGAR-FREE/ACLHOL-FREE 118 ML BOTTLE PO PRN ×2 (01:25→06:25)
[2022-02-13] MEDS: INSULIN SLIDING SCALE (NOVOLOG) 1 VIAL SQ SCH ×2 (06:25→12:01)
[2022-02-13] MEDS ORDERED: LEVOTHYROXINE NA 100 MCG TABLET (FP) PO SCH (07:00)
[2022-02-13] MEDS ORDERED: CYCLOBENZAPRINE HCL 5 MG TABLET PO SCH (09:26)
[2022-02-13 09:29] VITALS: BP 124/81; PULSE 74; RESP 18; TEMP 98.3
[2022-02-13] MEDS ORDERED: CYCLOBENZAPRINE HCL 10 MG TABLET (FP) PO SCH (09:29)
[2022-02-13] MEDS ORDERED: ENOXAPARIN NA (PORCINE) 40 MG/0.4 ML DISP.SYRIN SQ SCH (10:00)
[2022-02-13] MEDS ORDERED: LIDOCAINE 5% TOPICAL PATCH TP SCH (10:00)
[2022-02-13] MEDS: amLODIPine BESYLATE 5 MG TABLET (FP) PO SCH (10:54)
[2022-02-13] MEDS: ASPIRIN COATED 81 MG TABLET.EC PO SCH (10:55)
[2022-02-13] MEDS ORDERED: LIDOCAINE PATCH REMOVAL MC SCH (22:00)
== END 2022-02-13 15:38 | disposition home or self-care (01) ==
LOC: JER 02:12 → INTOOBSV 05:17 → JERBED 05:17 → UNDOADMOB 05:17 → JERBED 07:43 → J4S 07:43 → JERBED 11:17
PROVIDERS: ADMIT Internal Medicine; ATTEND Internal Medicine
PROC: 3E033NZ Introduction of Analgesics, Hypnotics, Sedatives into Peripheral Vein, Percutaneous Approach (ICD-10-PCS; principal; 2022-02-12)
DX: G45.9 Transient cerebral ischemic attack, unspecified (principal); I10 Essential (primary) hypertension; E11.9 Type 2 diabetes mellitus without complications; E66.8 Other obesity; Z68.31 Body mass index [BMI] 31.0-31.9, adult; Z86.73 Personal history of transient ischemic attack (TIA), and cerebral infarction without residual deficits; J45.909 Unspecified asthma, uncomplicated; D64.9 Anemia, unspecified; E78.00 Pure hypercholesterolemia, unspecified; R56.9 Unspecified convulsions
CPT/HCPCS: 0241U-QW; 36415; 70450-TC; 71045-TC-FY; 71275-TC; 74174-TC; 76775-TC; 76856-TC; 80053; 81003; 82962; 83690; 83735; 84484; 85025; 85610; 85730; 87086; 87651; 93005; 93010; 93306-TC; 93880-TC; 99285-25; G0378

== ENCOUNTER 2022-05-24 21:18 | Observation (INO) | payer OTHER ==
[2022-05-24 21:22] VITALS: BMI 31.1
[2022-05-24 22:50] LABS: EPI CELLS 8 /uL (0-25.1); HYALINE CASTS 0 /uL (0-3.1); URINE APPEARANCE CLEAR; URINE BACTERIA 22 /uL (0-1359); URINE BILIRUBIN NEGATIVE (NEGATIVE); URINE COLOR YELLOW; URINE GLUCOSE (UA) NEGATIVE (NEGATIVE); URINE KETONE NEGATIVE (NEGATIVE); URINE LEUK ESTERASE TRACE (NEGATIVE); URINE NITRITE NEGATIVE (NEGATIVE); URINE PROTEIN NEGATIVE (NEGATIVE); URINE RBC 11 /uL (0-23.9); URINE UROBILINOGEN 0.2 mg/dL (0.2-1.0); URINE WBC 6 /uL (0-25.8)
[2022-05-24 23:08] LABS: BASO % 0.7 % (0-2.0); EOS % 4.2 % (0-4.5); HEMATOCRIT 39.3 % (32.4-45.2); HEMOGLOBIN 13.1 GM/dL (10.7-15.3); LYMPH % 33.8 % (8-40); MCH 29.4 pg (25.7-33.7); MCHC 33.4 g/dl (32.0-36.0); MEAN CELL VOLUME 88.2 fl (80-96); MEAN PLT VOLUME 7.4 fl (7.5-11.1); MONO % 9.6 % (3.8-10.2); NEUT % 51.7 % (42.8-82.8); PLATELET COUNT 382 10^3/uL (134-434); RBC 4.46 M/mm3 (3.60-5.2); RDW 13.7 % (11.6-15.6); WHITE BLOOD COUNT 7.2 K/mm3 (4.0-10.0)
[2022-05-24 23:16] LABS: INR 0.97 (0.83-1.09); PROTHROMBIN TIME (PATIENT) 11.1 SEC (9.7-13.0)
[2022-05-24 23:19] LABS: ACTIVATED PTT 33.2 SECONDS (25.2-36.5)
[2022-05-24 23:28] LABS: CALCIUM 9.2 mg/dL (8.5-10.1)
[2022-05-24 23:29] LABS: ALBUMIN 4.1 g/dl (3.4-5.0); BLOOD UREA NITROGEN 14.1 mg/dL (7-18); MAGNESIUM 2.2 mg/dL (1.8-2.4)
[2022-05-24 23:32] LABS: CREATININE 0.8 mg/dL (0.55-1.3)
[2022-05-24 23:33] LABS: BILIRUBIN,TOTAL 0.4 mg/dL (0.2-1); TOT PROT 7.1 g/dl (6.4-8.2)
[2022-05-25] MEDS ORDERED: amLODIPine BESYLATE 5 MG TABLET (FP) PO SCH (07:00)
[2022-05-25] MEDS ORDERED: ENOXAPARIN NA (PORCINE) 40 MG/0.4 ML DISP.SYRIN SQ ONE (08:41)
[2022-05-25] MEDS ORDERED: ASPIRIN 81 MG CHEWABLE TABLETS ONE ×2 (08:41→11:14)
[2022-05-25] MEDS ORDERED: amLODIPine BESYLATE 5 MG TABLET (FP) ONE (08:41)
[2022-05-25] MEDS ORDERED: ACETAMINOPHEN 325 MG TABLET (FP) ONE (08:42)
[2022-05-25] MEDS: INSULIN SLIDING SCALE (NOVOLOG) 1 VIAL SQ SCH ×4 (09:12→16:17)
[2022-05-25] MEDS: ASPIRIN 81 MG CHEWABLE TABLETS PO SCH ×2 (09:12→11:17)
[2022-05-25 09:57] LABS: BASO % 1.1 % (0-2.0); EOS % 4.8 % (0-4.5); HEMATOCRIT 38.7 % (32.4-45.2); HEMOGLOBIN 13.2 GM/dL (10.7-15.3); LYMPH % 26.5 % (8-40); MCH 29.8 pg (25.7-33.7); MCHC 34.2 g/dl (32.0-36.0); MEAN CELL VOLUME 87.1 fl (80-96); MEAN PLT VOLUME 7.3 fl (7.5-11.1); MONO % 10.1 % (3.8-10.2); NEUT % 57.5 % (42.8-82.8); PLATELET COUNT 374 10^3/uL (134-434); RBC 4.44 M/mm3 (3.60-5.2); RDW 13.8 % (11.6-15.6)
[2022-05-25] MEDS ORDERED: BENAZEPRIL HCL 20 MG PO SCH (10:00)
[2022-05-25] MEDS ORDERED: LISINOPRIL 20 MG TABLET PO SCH (10:00)
[2022-05-25] MEDS ORDERED: ASPIRIN 81 MG CHEWABLE TABLETS PO SCH (10:00)
[2022-05-25] MEDS ORDERED: ENOXAPARIN NA (PORCINE) 40 MG/0.4 ML DISP.SYRIN SQ SCH (10:00)
[2022-05-25 10:25] LABS: ALBUMIN 3.9 g/dl (3.4-5.0); MAGNESIUM 2.3 mg/dL (1.8-2.4)
[2022-05-25 10:28] LABS: PHOSPHOROUS 2.9 mg/dL (2.5-4.9)
[2022-05-25 10:30] LABS: BILIRUBIN,TOTAL 0.6 mg/dL (0.2-1)
[2022-05-25] MEDS ORDERED: LISINOPRIL 20 MG TABLET ONE (11:14)
[2022-05-25 15:30] VITALS: BP 122/93; PULSE 85; RESP 18; TEMP 98.7
[2022-05-25] MEDS ORDERED: ROSUVASTATIN CA 20 MG TABLET PO SCH (22:00)
[2022-05-26] MEDS ORDERED: LEVOTHYROXINE NA 100 MCG TABLET (FP) PO SCH (07:00)
[2022-05-26] MEDS ORDERED: sitaGLIPtin PHOSPHATE 50 MG TABLET PO SCH (09:03)
== END 2022-05-25 17:59 | disposition left against medical advice (07) ==
LOC: JER 21:18 → UNDOADMOB 05-25 03:29 → JERBED 05-25 03:29 → OBSVTOIN 05-25 06:25 → INTOOBSV 05-25 06:25 → JERBED 05-25 12:18
PROVIDERS: ADMIT Internal Medicine; ATTEND Internal Medicine
PROC: 3E023GC Introduction of Other Therapeutic Substance into Muscle, Percutaneous Approach (ICD-10-PCS; principal; 2022-05-25)
DX: I11.0 Hypertensive heart disease with heart failure (principal); I50.1 Left ventricular failure, unspecified; Z86.16 Personal history of COVID-19; E03.9 Hypothyroidism, unspecified; E78.5 Hyperlipidemia, unspecified; E11.9 Type 2 diabetes mellitus without complications; D64.9 Anemia, unspecified; Z86.73 Personal history of transient ischemic attack (TIA), and cerebral infarction without residual deficits
CPT/HCPCS: 0241U-QW; 36415; 71046-TC-FY; 71275-TC; 80053; 81003; 82550; 82962; 83690; 83735; 84100; 84443; 84484; 85025; 85379; 85610; 85730; 87086; 93005; 93010; 93306-TC; 99285-25; G0378; Q9967